=== PATIENT | female | born 1950 | race American Indian/Alaskan Native ===

== ENCOUNTER 2017-06-10 08:34 | Emergency (ER) | payer OTHER, MEDICARE ==
[2017-06-10 08:44] VITALS: BMI 41.3
[2017-06-10 08:45] VITALS: RESP 18; TEMP 97.6
[2017-06-10] MEDS ORDERED: Methocarbamol 500 MG Tab PO ONE (09:37)
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
[2017-06-10 10:30] VITALS: BP 181/78; PULSE 80; O2SAT 93
== END 2017-06-10 10:57 | disposition home or self-care (01) ==
LOC: ED 08:34
DX: M62.838 Other muscle spasm (principal); V43.52XA Car driver injured in collision with other type car in traffic accident, initial encounter; Y92.410 Unspecified street and highway as the place of occurrence of the external cause
CPT/HCPCS: 96372; 99285; J1885